=== PATIENT | female | born 1965 | race Caucasian/White ===

== ENCOUNTER 2017-05-29 20:45 | Emergency (ER) | payer BC, OTHER ==
[~2017-05-29] VITALS: Ht 167.6 cm; Wt 139.5 kg
[2017-05-29 20:48] VITALS: Ht 167.6 cm; Wt 139.5 kg
--- NOTE | 2017-05-29 22:12 | ERD ---
ER Documentation Chief Complaint Date/Time DATE: 05/29/17 TIME: 22:11 Chief Complaint cough, increased sob since yesterday. hx asthma. rescue inhaler ineffective HPI 52-year-old female presents here in emergency department for complaints of cough shortness breath and wheezing that started yesterday. Patient has history of asthma, has been using albuterol with only mild relief.Patient is diabetic. Patient does not have any chest pain. Patient denies any dizziness. ROS All systems reviewed and are negative except as per history of present illness. Medications Home Meds Reported Medications Albuterol Sulfate* (Proair HFA*) Unknown Strength Hfa.aer.ad, INH Q6, #1 INHALER 05/29/17 Glimepiride* (Glimepiride*) Unknown Strength Tablet, PO WITH BREAKFAST DINNE, TAB 05/29/17 Pioglitazone Hcl* (Actos*) Unknown Strength Tablet, PO DAILY, #30 TAB 05/29/17 Metformin* (Glucophage*) Unknown Strength Tab, PO BID, #20 TAB 05/29/17 Allergies Allergies: Coded Allergies: No Known Allergy (Unverified , 05/29/17) PMhx/Soc History of Surgery: Yes (cholecystectomy) Hx Respiratory Disorders: Yes (asthma) Hx Miscellaneous Medical Probl: Yes (dm ) FmHx Family History: No coronary disease, No diabetes, No other Physical Exam Vitals Vital Signs Date Time Temp Pulse Resp B/P Pulse Ox O2 Delivery O2 Flow Rate FiO2 05/29/17 22:30 102 26 95 21 05/29/17 20:48 98.2 103 24 132/78 97 Physical Exam GENERAL: The patient is well developed and appropriate for usual state of health, in no apparent distress. CHEST: diffuse wheezing bilaterally. There are no rales, crackles or rhonchi. HEART: Regular rate and rhythm. No murmurs, clicks, rubs or gallops. No S3 or S4. ABDOMEN: Soft, nontender and nondistended. Good bowel sounds. No rebound or guarding. No gross peritonitis. No gross organomegaly or masses. No Rodriguez sign or McBurney point tenderness. BACK: No midline or flank tenderness. EXTREMITIES: Equal pulses bilaterally. There is no peripheral clubbing, cyanosis or edema. No focal swelling or erythema. Full range of motion. Grossly neurovascularly intact. NEURO: Alert and oriented. Cranial nerves 2-12 intact. Motor strength in all 4 extremities with 5/5 strength. Sensation grossly intact. Normal speech and gait. SKIN: There is no apparent rash or petechia. The skin is warm and dry. HEMATOLOGIC AND LYMPHATIC: There is no evidence of excessive bruising or lymphedema. No gross cervical, axillary, or inguinal lymphadenopathy. Results 24 hrs Current Medications Medications (Trade) Dose Ordered Sig/Jack Route PRN Reason Start Time Stop Time Status Last Admin Dose Admin Albuterol (Proventil 0.083% (Neb)) 5 mg ONCE STAT NEB 05/29/17 22:17 05/29/17 22:18 DC 05/29/17 22:35 Ipratropium Reynolds (Atrovent 0.02% (Neb)) 0.5 mg ONCE STAT NEB 05/29/17 22:17 05/29/17 22:18 DC 05/29/17 22:35 Breathing treatment of albuterol and Atrovent was given here in emergency department, after treatment, patient's lungs sounds are clear and patient's oxygenation is better. Patient verbalized feeling much better. PROCEDURE: CHEST - 1 VIEW CLINICAL INDICATION: 52-year-old female with shortness of breath. TECHNIQUE: A single frontal erect portable view of the chest was performed. The images were reviewed on a PACS workstation. COMPARISON: None. FINDINGS: The cardiomediastinal silhouette has a normal appearance. There is no evidence for an infiltrate. There is no evidence for congestive heart failure. There is no evidence for pneumothorax. The osseous structures are intact. IMPRESSION: No evidence for active cardiopulmonary disease. .Daniel Porter MD, Date Time Electronically viewed and signed by .Daniel Porter MD, on 05/29/2017 23:49 .M/ CC: [facility] Procedures/MDM Medical Decision Making: Patient symptoms are most likely consistent with acute bronchitis with acute asthma exacerbation, which most likely is atypical infection. There is low suspicion for Pneumonia at this time since patients lungs sounds are clear, patient O2 saturation is normal and patient doesnt show any respiratory distress. Patients chest xray doesnt show infiltrates or any other cardiopulmonary emergencies at this time. There is low suspicion for other cardiopulmonary emergencies at this time such as CHF, Pulmonary Embolism, Pneumothorax, Aortic Aneurysm or any other cardiopulmonary emergencies at this time. There is low suspicion for sepsis. Patient appears well and is hemodynamically stable. Fever is controlled with medicines. Disposition: Home. Condition: Stable Prescriptions: Azithromycin. Albuterol, Guaifenasin DM Instructions: Patient is advised to take medications as prescribed. Patient is advised to rest. Patient advised to increase fluid intake, do humidifier at home and if possible, do salt water gargles. Patient is advised that if symptoms are worse, shortness of breath, uncontrolled fever, stridor, vomiting, worst signs and symptoms to return to emergency department immediately. Otherwise, patient is advised to follow up with primary doctor in 5-7 days. Departure Diagnosis: Primary Impression: Acute bronchitis Bronchitis organism: unspecified organism Qualified Code: J20.9 - Acute bronchitis, unspecified organism Additional Impression: Acute asthma exacerbation Asthma severity: unspecified severity Qualified Code: J45.901 - Asthma with acute exacerbation, unspecified asthma severity Condition: Stable Patient Instructions: Bronchitis With Wheezing (Adult) Additional Instructions: Patient is advised to take medications as prescribed. Patient is advised to rest. Patient advised to increase fluid intake, do humidifier at home and if possible, do salt water gargles. Patient is advised that if symptoms are worse, shortness of breath, uncontrolled fever, stridor, vomiting, worst signs and symptoms to return to emergency department immediately. Otherwise, patient is advised to follow up with primary doctor in 5-7 days. TINA NEVILLE NP May 29, 2017 22:12
[2017-05-29] MEDS ORDERED: IPRATROPIUM (NEB) 0.5 MG/2.5 ML AMP NEB STA (22:17)
[2017-05-29] MEDS ORDERED: ALBUTEROL 0.083% (NEB) 2.5 MG/3 ML AMP NEB STA (22:17)
[2017-05-29] MEDS ORDERED: METF500T4 PO (22:46)
[2017-05-29] MEDS ORDERED: ALBU8.5H3 INH (22:46)
[2017-05-29] MEDS ORDERED: PIOG15TA4 PO (22:46)
[2017-05-29] MEDS ORDERED: GLIM1TAB2 PO (22:46)
--- NOTE | 2017-05-29 23:49 | RADRPT ---
PROCEDURE: CHEST - 1 VIEW CLINICAL INDICATION: 52-year-old female with shortness of breath. TECHNIQUE: A single frontal erect portable view of the chest was performed. The images were revie wed on a PACS workstation. COMPARISON: None. FINDINGS: The cardiomediastinal silhouette has a normal appearance. There is no evidence for an infiltrate. There is no evidence for congestive heart failure. There is no evidence for pneumothorax. The osseou s structures are intact. IMPRESSION: No evidence for active cardiopulmonary disease. .Daniel Porter MD, MD Date Time Electronically viewed and signed by .Daniel Porter MD, on 05/29/2017 23:49 .M/
[2017-05-30] MEDS ORDERED: ALBU8.5H3 INH (00:11)
[2017-05-30] MEDS ORDERED: GUAI120S26 PO (00:11)
[2017-05-30] MEDS ORDERED: AZIT250T94 PO (00:11)
[2017-05-30 01:04] VITALS: BP 135/77; PULSE 97; RESP 20; TEMP 97.8
== END 2017-05-30 01:05 | disposition home or self-care (01) ==
LOC: FTE 20:45
DX: J20.9 Acute bronchitis, unspecified (principal); J45.901 Unspecified asthma with (acute) exacerbation; E11.9 Type 2 diabetes mellitus without complications; Z79.84 Long term (current) use of oral hypoglycemic drugs
CPT/HCPCS: 71010; 94664; 99284; Z7610

== ENCOUNTER 2017-08-09 10:21 | Emergency (ER) | payer BC ==
[~2017-08-09] VITALS: Wt 136.1 kg
[~2017-08-09 10:21] MED LIST: ALBU8.5H3 INH; AZIT250T94 PO; GLIM1TAB2 PO; GUAI120S26 PO; METF500T4 PO; PIOG15TA4 PO
[2017-08-09] MEDS ORDERED: ALBUTEROL 0.083% (NEB) 2.5 MG/3 ML AMP HHN STA (10:41)
[2017-08-09] MEDS ORDERED: predniSONE 20 MG TAB PO ONE (11:00)
[2017-08-09] MEDS ORDERED: ALBU8.5H3 INH (12:09)
[2017-08-09] MEDS ORDERED: AZIT250T94 PO (12:09)
[2017-08-09] MEDS ORDERED: PRED20TA PO (12:09)
--- NOTE | 2017-08-09 12:12 | ERD ---
ER Documentation Chief Complaint Chief Complaint asthma flare up x 3days, inhaler not working HPI This 52-year-old female presents with productive cough and wheezing for last 3 days. She has a history of asthma. She is using her inhaler with minimal relief. She denies fevers, vomiting, chest pain. Does feel chest heaviness with wheezing. ROS All systems reviewed and are negative except as per history of present illness. Medications Home Meds Active Scripts Azithromycin* (Zithromax*) 250 Mg Tablet, 250 MG PO .ZPACK DIRECTED, #6 TAB TAKE 500 MG (2 TABS) THE FIRST DAY THEN 250 MG (1 TAB) DAYS 2-5 Prov:ANTHONY UNDERWOOD MD 08/09/17 Albuterol Sulfate* (Proair HFA*) 8.5 Gm Hfa.aer.ad, 2 PUFF INH Q4, #1 INHALER Prov:ANTHONY UNDERWOOD MD 08/09/17 Prednisone* (Prednisone*) 20 Mg Tab, 40 MG PO DAILY for 4 Days, TAB Start August 10, 2017. Prov:ANTHONY UNDERWOOD MD 08/09/17 Azithromycin* (Zithromax*) 250 Mg Tablet, 250 MG PO .ZPACK DIRECTED, #6 TAB TAKE 500 MG (2 TABS) THE FIRST DAY THEN 250 MG (1 TAB) DAYS 2-5 Prov:TINA NEVILLE NP 05/30/17 Ytyixnaknbf-N-Ipspwklukk Hb* (Guaifenesin* DM Syrup) 120 Ml Syrup, 10 ML PO Q4H Y for COUGH, #120 ML Prov:TINA NEVILLE NP 05/30/17 Albuterol Sulfate* (Proair HFA*) 8.5 Gm Hfa.aer.ad, 2 PUFF INH Q4H Y for WHEEZING AND SOB, #1 INHALER Prov:TINA NEVILLE NP 05/30/17 Reported Medications Albuterol Sulfate* (Proair HFA*) Unknown Strength Hfa.aer.ad, INH Q6, #1 INHALER 05/29/17 Glimepiride* (Glimepiride*) Unknown Strength Tablet, PO WITH BREAKFAST DINNE, TAB 05/29/17 Pioglitazone Hcl* (Actos*) Unknown Strength Tablet, PO DAILY, #30 TAB 05/29/17 Metformin* (Glucophage*) Unknown Strength Tab, PO BID, #20 TAB 05/29/17 Allergies Allergies: Coded Allergies: No Known Allergy (Unverified , 05/29/17) PMhx/Soc History of Surgery: Yes (cholecystectomy) Anesthesia Reaction: No Hx Neurological Disorder: No Hx Respiratory Disorders: Yes (asthma) Hx Cardiac Disorders: Yes (dyslipidemia) Hx Psychiatric Problems: No Hx Miscellaneous Medical Probl: Yes (dm ) Hx Alcohol Use: No Hx Substance Use: No Hx Tobacco Use: No Physical Exam Vitals Vital Signs Date Time Temp Pulse Resp B/P Pulse Ox O2 Delivery O2 Flow Rate FiO2 08/09/17 10:55 85 20 97 21 08/09/17 10:31 97.8 88 20 137/93 96 Physical Exam Const: [] Alert, obese, [id number]. Head: Atraumatic Eyes: Normal Conjunctiva ENT: Normal External Ears, Nose and Mouth. Neck: Full range of motion..~ No meningismus. Resp: Clear to auscultation bilaterally mild really forced wheeze without significant wheeze at rest no rales or retractions. Cardio: Regular rate and rhythm, no murmurs Abd: Soft, non tender, non distended. Normal bowel sounds Skin: No petechiae or rashes Back: No midline or flank tenderness Ext: No cyanosis, or edema Neur: Awake and alert Psych: Normal Mood and Affect Results 24 hrs Laboratory Tests Test 08/09/17 10:55 Bedside Glucose 129mg/dL Current Medications Medications (Trade) Dose Ordered Sig/Jack Route PRN Reason Start Time Stop Time Status Last Admin Dose Admin Prednisone (Prednisone) 60 mg ONCE ONCE PO 08/09/17 11:00 08/09/17 11:01 DC 08/09/17 10:51 Albuterol (Proventil 0.083% (Neb)) 5 mg ONCE STAT HHN 08/09/17 10:41 08/09/17 10:44 DC 08/09/17 10:54 Procedures/MDM Is given albuterol treatment 1 and prednisone 60 mg of mouth. Accu-Chek is normal. Patient clear lungs on serial exam. Patient presents with URI symptoms with a history of asthma and productive cough. She will treated with Zithromax, short course prednisone, blood sugar monitoring and generous fluids and primary care follow-up and return precautions. The patient was stable with no new complaints during the ER course. Clinically, there is no current evidence to suggest meningitis, sepsis, acute abdomen, pneumonia, acute coronary syndrome, pulmonary embolism, or any other emergent condition appearing to require further evaluation or hospitalization. The patient should certainly return for any new or worsening symptoms per the aftercare instructions. They should otherwise follow-up with her primary care doctor for reevaluation this week. Departure Diagnosis: Primary Impression: URI (upper respiratory infection) URI type: unspecified URI Qualified Code: J06.9 - Upper respiratory tract infection, unspecified type Additional Impression: Asthma attack Asthma severity: unspecified severity Asthma persistence: unspecified Qualified Code: J45.901 - Exacerbation of asthma, unspecified asthma severity, unspecified whether persistent Condition: Stable Patient Instructions: Asthma, Acute (Adult), Bronchitis With Wheezing (Adult) Additional Instructions: Cheque otro vez con rossi doctor primario en el proximo weller or regresa para mas o nueva simptomas. ANTHONY UNDERWOOD MD Aug 09, 2017 12:12
== END 2017-08-09 12:35 | disposition home or self-care (01) ==
LOC: FTE 10:21
DX: J06.9 Acute upper respiratory infection, unspecified (principal); J45.901 Unspecified asthma with (acute) exacerbation; E11.9 Type 2 diabetes mellitus without complications; Z79.84 Long term (current) use of oral hypoglycemic drugs
CPT/HCPCS: 82962; 93005; 94664; 99283; J7512; Z7610

== ENCOUNTER 2017-08-13 20:04 | Emergency (ER) | payer BC ==
[~2017-08-13] VITALS: Ht 157.5 cm; Wt 127.4 kg
[~2017-08-13 20:04] MED LIST changes: +PRED20TA PO
[2017-08-13 20:15] VITALS: Ht 157.5 cm; Wt 127.4 kg
--- NOTE | 2017-08-13 21:13 | ERD ---
ER Documentation Chief Complaint Chief Complaint nausea/light headed since yesterday. denies vomiting or dizziness HPI 52-year-old female presents emergency department for frontal headache, nausea without vomiting that started yesterday. Stated that this started after she received the news that her mother is going to be placed on hospice. A0. LMP: Stated that she does not have any menstruations anymore. Denies that this is the worst headache of her life, head injury, dizziness, blurry vision, changes in vision, neck pain, neck stiffness, throat pain, difficulty swallowing, shoulder pain, chest pain, back pain, abdominal pain, nausea, vomiting, constipation, dysuria, urinary symptoms, loss of bowel bladder control, unilateral weakness, injury, trauma, falls, difficulty walking , numbness or tingling sensation, fever, chills. No known drug allergies. Past medical history of diabetes, asthma. Surgery: Cholecystectomy. Medication: Metformin. Social: Works at a warehouse. Denies smoking, use of alcoholic beverages, use of illegal drugs. ROS All systems reviewed and are negative except as per history of present illness. Medications Home Meds Active Scripts Lorazepam* (Lorazepam*) 1 Mg Tablet, 1 MG PO Q8 Y for ANXIETY, #10 TAB Prov:WILLA BRUCE 08/13/17 Hydroxyzine Hcl* (Hydroxyzine Hcl*) 50 Mg Tablet, 50 MG PO Q6 Y for ANXIETY, # 20 TAB Prov:WILLA BRUCE 08/13/17 Azithromycin* (Zithromax*) 250 Mg Tablet, 250 MG PO .ZPACK DIRECTED, #6 TAB TAKE 500 MG (2 TABS) THE FIRST DAY THEN 250 MG (1 TAB) DAYS 2-5 Prov:ANTHONY UNDERWOOD MD 08/09/17 Albuterol Sulfate* (Proair HFA*) 8.5 Gm Hfa.aer.ad, 2 PUFF INH Q4, #1 INHALER Prov:ANTHONY UNDERWOOD MD 08/09/17 Prednisone* (Prednisone*) 20 Mg Tab, 40 MG PO DAILY for 4 Days, TAB Start August 10, 2017. Prov:ANTHONY UNDERWOOD MD 08/09/17 Azithromycin* (Zithromax*) 250 Mg Tablet, 250 MG PO .ZPACK DIRECTED, #6 TAB TAKE 500 MG (2 TABS) THE FIRST DAY THEN 250 MG (1 TAB) DAYS 2-5 Prov:TINA NEVILLE NP 05/30/17 Qbizzqnpurb-B-Wouzwoympi Hb* (Guaifenesin* DM Syrup) 120 Ml Syrup, 10 ML PO Q4H Y for COUGH, #120 ML Prov:TINA NEVILLE NP 05/30/17 Albuterol Sulfate* (Proair HFA*) 8.5 Gm Hfa.aer.ad, 2 PUFF INH Q4H Y for WHEEZING AND SOB, #1 INHALER Prov:TINA NEVILLE NP 05/30/17 Reported Medications Albuterol Sulfate* (Proair HFA*) Unknown Strength Hfa.aer.ad, INH Q6, #1 INHALER 05/29/17 Glimepiride* (Glimepiride*) Unknown Strength Tablet, PO WITH BREAKFAST DINNE, TAB 05/29/17 Pioglitazone Hcl* (Actos*) Unknown Strength Tablet, PO DAILY, #30 TAB 05/29/17 Metformin* (Glucophage*) Unknown Strength Tab, PO BID, #20 TAB 05/29/17 Allergies Allergies: Coded Allergies: No Known Allergy (Unverified , 05/29/17) PMhx/Soc History of Surgery: Yes (cholecystectomy) Anesthesia Reaction: No Hx Neurological Disorder: No Hx Respiratory Disorders: Yes (asthma) Hx Cardiac Disorders: Yes (dyslipidemia) Hx Psychiatric Problems: No Hx Miscellaneous Medical Probl: Yes (dm ) Hx Alcohol Use: No Hx Substance Use: No Hx Tobacco Use: No Physical Exam Vitals Vital Signs Date Time Temp Pulse Resp B/P Pulse Ox O2 Delivery O2 Flow Rate FiO2 08/13/17 20:15 97.6 94 20 153/67 96 Physical Exam Const: [] Head: Atraumatic Eyes: Normal Conjunctiva ENT: Normal External Ears, Nose and Mouth. Neck: Full range of motion..~ No meningismus. Resp: Clear to auscultation bilaterally Cardio: Regular rate and rhythm, no murmurs Abd: Soft, non tender, non distended. Normal bowel sounds Skin: No petechiae or rashes Back: No midline or flank tenderness Ext: No cyanosis, or edema Neur: Awake and alert Psych: Normal Mood and Affect Results 24 hrs Laboratory Tests Test 08/13/17 21:45 Bedside Glucose 160mg/dL Current Medications Medications (Trade) Dose Ordered Sig/Jack Route PRN Reason Start Time Stop Time Status Last Admin Dose Admin Lorazepam (Ativan) 1 mg ONCE ONCE PO 08/13/17 22:00 08/13/17 22:01 DC 08/13/17 22:15 Procedures/MDM 52-year-old female presents emergency department for frontal headache, nausea without vomiting that started yesterday. Stated that this started after she received the news that her mother is going to be placed on hospice. A0. LMP: Stated that she does not have any menstruations anymore. Denies that this is the worst headache of her life, head injury, dizziness, blurry vision, changes in vision, neck pain, neck stiffness, throat pain, difficulty swallowing, shoulder pain, chest pain, back pain, abdominal pain, nausea, vomiting, constipation, dysuria, urinary symptoms, loss of bowel bladder control, unilateral weakness, injury, trauma, falls, difficulty walking , numbness or tingling sensation, fever, chills. No known drug allergies. Past medical history of diabetes, asthma. Surgery: Cholecystectomy. Medication: Metformin. Social: Works at a warehouse. Denies smoking, use of alcoholic beverages, use of illegal drugs. Patient agreed with the diagnostic test, treatment, plan of care. EKG: Normal sinus rhythm with ventricular rate of 96 bpm. No STEMI. No evidence of acute myocardial infarct. No evidence of ischemia. POC blood glucose: 160 mg/dL Treatment: Ativan. P.o. challenge. Reevaluation: Denies headache, dizziness, blurred vision, neck pain, throat pain , difficulty swallowing, chest pain, difficulty breathing, abdominal pain, nausea, vomiting. No episode of emesis here in the emergency department. Lung sounds are clear to auscultation. No abdominal tenderness here in the emergency department. Cranial nerves II through XII are intact. No neurological deficits. Romberg test negative. No neurovascular deficits. Prescription: Hydroxyzine. Ativan. Differential diagnosis: Acute microinfarction versus acute coronary syndrome versus stroke versus subarachnoid hemorrhage versus anxiety versus stress Final diagnosis: Anxiety related to stress Follow-up with primary care physician the next 24-48 hours. Come back to emergency department for any new symptoms or any worsening symptoms. All questions and concerns were answered. Patient verbalized understanding and agreed with plan of care. Hemodynamically stable on discharge. Departure Diagnosis: Primary Impression: Anxiety Condition: Stable Additional Instructions: Follow-up with primary care physician the next 24-48 hours. Come back to emergency department for any new symptoms or any worsening symptoms. All questions and concerns were answered. Patient verbalized understanding and agreed with plan of care. WILLA BRUCE Aug 13, 2017 21:13
[2017-08-13] MEDS ORDERED: LORA1TAB PO (21:56)
[2017-08-13] MEDS ORDERED: HYDR-3012 PO (21:56)
[2017-08-13] MEDS ORDERED: LORAZEPAM 1 MG TAB PO ONE (22:00)
== END 2017-08-13 23:04 | disposition home or self-care (01) ==
LOC: FTE 20:04
DX: F41.9 Anxiety disorder, unspecified (principal); R42 Dizziness and giddiness; E11.9 Type 2 diabetes mellitus without complications; J45.909 Unspecified asthma, uncomplicated; Z79.84 Long term (current) use of oral hypoglycemic drugs
CPT/HCPCS: 82962; 99284; Z7610

== ENCOUNTER 2017-09-01 10:30 | Emergency (ER) | payer BC ==
[~2017-09-01] VITALS: Wt 140.0 kg
[~2017-09-01 10:30] MED LIST changes: +HYDR-3012 PO; +LORA1TAB PO
[2017-09-01] MEDS ORDERED: ALBUTEROL 0.083% (NEB) 2.5 MG/3 ML AMP HHN STA (11:45)
[2017-09-01] MEDS ORDERED: predniSONE 20 MG TAB PO ONE (12:00)
[2017-09-01] MEDS ORDERED: ALBU8.5H3 INH (12:40)
[2017-09-01] MEDS ORDERED: PRED20TA PO (12:40)
[2017-09-01] MEDS ORDERED: CETI10CA PO (12:40)
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
== END 2017-09-01 13:10 | disposition home or self-care (01) ==
LOC: FTE 10:30
DX: J45.901 Unspecified asthma with (acute) exacerbation (principal); J45.909 Unspecified asthma, uncomplicated; E11.9 Type 2 diabetes mellitus without complications; Z79.84 Long term (current) use of oral hypoglycemic drugs
CPT/HCPCS: 94664; 99284; J7512; Z7610

== ENCOUNTER 2017-11-12 16:06 | Emergency (ER) | END 2017-11-12 19:46 | disposition home or self-care (01) ==

== ENCOUNTER 2018-03-29 18:59 | Emergency (ER) | END 2018-03-29 21:59 | disposition home or self-care (01) ==

== ENCOUNTER 2018-06-24 11:04 | Emergency (ER) | END 2018-06-24 13:51 | disposition home or self-care (01) ==

== ENCOUNTER 2018-09-20 16:04 | Emergency (ER) | payer OTHER ==
[~2018-09-20] VITALS: Ht 167.6 cm; Wt 138.1 kg
[~2018-09-20 16:04] MED LIST changes: -ALBU8.5H3 INH; +ALBU8.5H8 INH; +AZIT250T PO; -AZIT250T94 PO; +CETI10CA PO; +CYCL10TA7 PO; -HYDR-3012 PO; +HYDR-4011 PO; +HYDR50TA15 PO; +METF-849 PO; -METF500T4 PO; +NAPR-985 PO; +PIOG15TA12 PO; -PIOG15TA4 PO
[2018-09-20 16:10] VITALS: Ht 167.6 cm; Wt 138.1 kg
[2018-09-20] MEDS ORDERED: KETOROLAC 30 MG INJ IM STA (16:43)
[2018-09-20] MEDS ORDERED: TRAM50TA2 PO (17:20)
--- NOTE | 2018-09-20 17:44 | ERD ---
ER Documentation Chief Complaint Chief Complaint Complains of right knee pain x 3 days HPI This is a 53-year-old female who presents emergency room today complaining of right knee pain for "a long time". Patient states she has had increased pain as of recently as she has to bend her knee up to put some soup covers on at work. Denies any new trauma. She states that she did have an MRI done but is here about her results. Denies any new trauma, fevers or chills. ROS All systems reviewed and are negative except as per history of present illness. Medications Home Meds Active Scripts Tramadol HCl (Tramadol HCl) 50 Mg Tablet, 50 MG PO Q6 PRN for PAIN, #12 TAB Prov:CHRISTOPHER VOGT PA-C 09/20/18 Naproxen* (Naprosyn*) 500 Mg Tablet, 500 MG PO BID PRN for PAIN AND/OR INFLAMMATION, #30 TAB Prov:TRISTAN MAK PA-C 03/29/18 Naproxen* (Naprosyn*) 500 Mg Tablet, 500 MG PO BID PRN for PAIN AND/OR INFLAMMATION, #30 TAB Prov:TRISTAN MAK PA-C 11/12/17 Cyclobenzaprine Hcl* (Cyclobenzaprine Hcl*) 10 Mg Tablet, 10 MG PO TID, #15 TAB Prov:TRISTAN MAK PA-C 18 Hydrocodone/Acetaminophen ([place]erndon 5-325 Tablet) 1 Each Tablet, 1 TAB PO Q6H PRN for PAIN, #7 TAB Prov:TRISTAN MAK PA-C 11/12/17 Albuterol Sulfate* (Proair HFA*) 8.5 Gm Hfa.aer.ad, 2 PUFF INH Q4, #1 INHALER Prov:ANTHONY UNDERWOOD MD 09/01/17 Cetirizine Hcl* (Zyrtec*) 10 Mg Capsule, 10 MG PO DAILY, #15 TAB.CHEW Prov:ANTHONY UNDERWOOD MD 09/01/17 Prednisone* (Prednisone*) 20 Mg Tab, 40 MG PO DAILY for 4 Days, TAB Start September 02, 2017 Prov:ANTHONY UNDERWOOD MD 09/01/17 Lorazepam* (Lorazepam*) 1 Mg Tablet, 1 MG PO Q8 PRN for ANXIETY, #10 TAB Prov:WILLA BRUCE 08/13/17 Hydroxyzine Hcl* (Hydroxyzine Hcl*) 50 Mg Tablet, 50 MG PO Q6 PRN for ANXIETY, #20 TAB Prov:WILLA BRUCE 08/13/17 Azithromycin* (Zithromax*) 250 Mg Tablet, 250 MG PO .ZPADOMENICO DIRECTED, #6 TAB TAKE 500 MG (2 TABS) THE FIRST DAY THEN 250 MG (1 TAB) DAYS 2-5 Prov:ANTHONY UNDERWOOD MD 08/09/17 Albuterol Sulfate* (Proair HFA*) 8.5 Gm Hfa.aer.ad, 2 PUFF INH Q4, #1 INHALER Prov:ANTHONY UNDERWOOD MD 08/09/17 Prednisone* (Prednisone*) 20 Mg Tab, 40 MG PO DAILY for 4 Days, TAB Start August 10, 2017. Prov:ANTHONY UNDERWOOD MD 08/09/17 Azithromycin* (Zithromax*) 250 Mg Tablet, 250 MG PO .RobertPADOMENICO DIRECTED, #6 TAB TAKE 500 MG (2 TABS) THE FIRST DAY THEN 250 MG (1 TAB) DAYS 2-5 Prov:TINA NEVILLE NP 05/30/17 Hltqufkvtor-V-Pxsinqawqm Hb* (Guaifenesin* DM Syrup) 120 Ml Syrup, 10 ML PO Q4H PRN for COUGH, #120 ML Prov:TINA NEVILLE NP 05/30/17 Albuterol Sulfate* (Proair HFA*) 8.5 Gm Hfa.aer.ad, 2 PUFF INH Q4H PRN for WHEEZING AND SOB, #1 INHALER Prov:TINA NEVILLE IT SUPPORT SPECIALIST 05/30/17 Reported Medications Albuterol Sulfate* (Proair HFA*) Unknown Strength Hfa.aer.ad, INH Q6, #1 INHALER 05/29/17 Glimepiride* (Glimepiride*) Unknown Strength Tablet, PO WITH BREAKFAST DINNE, TAB 05/29/17 Pioglitazone Hcl* (Actos*) Unknown Strength Tablet, PO DAILY, #30 TAB 05/29/17 Metformin* (Glucophage*) Unknown Strength Tab, PO BID, #20 TAB 05/29/17 Allergies Allergies: Coded Allergies: fexofenadine (Verified Allergy, Unknown, 06/24/18) PMhx/Soc Past medical history of diabetes, asthma, hyperlipidemia, chronic knee pain. History of Surgery: Yes (cholecystectomy) Anesthesia Reaction: No Hx Neurological Disorder: No Hx Respiratory Disorders: Yes (asthma) Hx Cardiac Disorders: Yes (dyslipidemia) Hx Psychiatric Problems: No Hx Miscellaneous Medical Probl: Yes (dm ) Hx Alcohol Use: No Hx Substance Use: No Hx Tobacco Use: No Smoking Status: Never smoker FmHx Family History: diabetes, coronary disease Physical Exam Vitals Vital Signs Date Temp Pulse Resp B/P (MAP) Pulse Ox O2 O2 Flow FiO2 Time Delivery Rate 09/20/18 98.0 97 20 149/98 96 16:10 (115) Physical Exam Const: morbidly obese, No acute distress Head: Atraumatic Eyes: Normal Conjunctiva ENT: Normal External Ears, Nose and Mouth. Neck: Full range of motion. No meningismus. Resp: Clear to auscultation bilaterally Cardio: Regular rate and rhythm, no murmurs Skin: No petechiae or rashes MSK: right knee with no deformity, no effusion, no ecchymosis. Full active range of motion. Tenderness palpation medial joint line and and medial aspect of patella. pulses 2+. Still neurovascularly intact. Neur: Awake and alert Psych: Normal Mood and Affect Results 24 hrs Laboratory Tests Test 09/20/18 17:06 POC Beta HCG, Qualitative NEGATIVE Current Medications Medications Dose Sig/Jack Start Time Status Last (Trade) Ordered Route PRN Stop Time Admin Dose Reason Admin Ketorolac 30 mg ONCE STAT 09/20/18 DC 09/20/18 Tromethamine IM 16:43 17:08 (Toradol) 09/20/18 16:44 Procedures/MDM This is a 53-year-old female who presents emergency department complaining of right knee pain that is chronic. Upon review of patient's medical records patient was seen here on June 24, 2018 and had a negative x-ray at this time. Patient brought paperwork with her that she had an MRI done in June. MRI report indicates that she has a medial meniscus tear, subchondral cyst as well as arthritis and chondromalacia. I declined all results of the patient. Patient was requesting medication for pain. I offered patient Toradol and she indicated that she feels like she does not think that that helps and she wanted a steroid injection. She states that she had that for her back once and it helped her. I explained to the patient that I would not give her steroid injection her knee but if she is able to follow-up with her counseling specialist they may do that for her. Patient was offered a [place] instead however she stated that she would rather have the injection. She was given Toradol. She does have acute on chronic pain with significant pathology in her knee and therefore I will give her a short course of tramadol however I would plan to the patient we will not keep given her refills for this medication. She is been instructed to follow-up with her primary care doctor in regards to her referral to counseling specialist. Patient is afebrile and otherwise well- appearing. Has had no trauma. Low suspicion for acute fracture dislocation, septic joint, gout. At this time the patient is stable for discharge and outpatient management. Patient should follow up with their PCP in the next 1-2 days. They may return to the emergency department sooner for any persistent or worsening of symptoms. Patient understood and agreed with the plan. Departure Diagnosis: Primary Impression: Knee pain Chronicity: chronic Laterality: right Qualified Codes: M25.561 - Pain in right knee; G89.29 - Other chronic pain Condition: Fair Patient Instructions: Treating Meniscus Problems, Reducing Knee Pain and Swelling Referrals: your PCP/ specialist Additional Instructions: Llame al doctor HAMMAD y tia prasad SHIMON PARA DENTRO DE 1-2 RODRIGUEZ.Dgale a la secretaria que nosotros le instruimos hacer esta shimon.Avise o llame si rossi condicin se empeora antes de la shimon. Regresa aqui si peor o no mejor. Take tramadol for severe pain otherwise take your Motrin or Tylenol. Follow-up with your primary care doctor about your referral back to counseling specialist. CHRISTOPHER VOGT PA-C Sep 20, 2018 17:44
== END 2018-09-20 17:37 | disposition home or self-care (01) ==
LOC: FTE 16:04
DX: M25.561 Pain in right knee (principal); E11.9 Type 2 diabetes mellitus without complications; J45.909 Unspecified asthma, uncomplicated; Z79.84 Long term (current) use of oral hypoglycemic drugs
CPT/HCPCS: 81025; 96372; J1885; Z7502